=== PATIENT | female | born 1975 | race Asian ===

== ENCOUNTER → 2017-05-06 | Outpatient (CLI) | payer BC ==
--- NOTE | ~2017-05-06 | MY29 ---
[facility] A Service of [facility] RADIOLOGY TEXT RESULTS PATIENT: AFSANEH WARD LOCATION: [facility] : 71 UNIT #: [id number] AGE: [address]: Kesha Salazar MD SEX: F ORDER DR: [id number] [facility] [address] [facility] [address]. [place], [place] [address] [id number] O MR#: [id number] Acc #: [id number] NAME: AFSANEH WARD : 1975 SEX: F STUDY DATE/TIME: 05/06/2017 9:18 UNIT: [facility] ROOM: STUDY DESCRIPTION: MY OSKAR SCREENING W/ CAD BILAT Attending Physician: Kesha Salazar M.D. Referring Physician: Kesha Salazar M.D. Ordering Physician: Kesha Salazar M.D. Primary Care Physician: Kesha Salazar M.D. MEDICAL IMAGING REPORT This report is preliminary unless electronic signature is present EXAM Digital screening mammogram 05/06/2017. HISTORY A 42-year-old woman no risk elevation. Annual screening. COMPARISON STUDIES 03/23/1913, 04/02/2014, 04/04/2015, 04/16/2016 FINDINGS Digital imaging of each breast was completed utilizing screening protocol. Review includes FDA-approved CAD device. Breast parenchyma is dense with subareolar duct prominence bilaterally. I see no dominant mass. There are no interval occurring microcalcifications and no suspicious architectural deformity. IMPRESSION Negative mammogram. Annual screening recommended. BIRADS 1 Patients over the age of 40 are entered into a reminder system with target due date for the next mammogram. A result letter will also be sent to the patient. BIRADS: 1 Negative Dictated by... Humphrey Robles M.D. THIS IS AN ELECTRONICALLY VERIFIED REPORT Humphrey Robles M.D. at 05/06/2017 1:11 PM [facility] A Service [facility] RADIOLOGY TEXT RESULTS PATIENT: AFSANEH WARD LOCATION: [facility] : 71 UNIT #: [id number] AGE: [address]: Kesha Salazar MD SEX: F ORDER DR: LAURA/verna TD: 05/06/2017 12:49 JOB #: [id number] MEDICAL IMAGING REPORT Page 1 of 1 COPY
== END | disposition home or self-care (01) ==
LOC: CWCC 08:54 → CMAM 09:00 → CWCC 09:00
DX: Z12.31 Encounter for screening mammogram for malignant neoplasm of breast (principal)
CPT/HCPCS: G0202